=== PATIENT | male | born 1970 | race Caucasian/White ===

== ENCOUNTER 2021-01-07 11:22 | Emergency (ER) | payer OTHER ==
[~2021-01-07] VITALS: Ht 175.3 cm; Wt 92.0 kg
[2021-01-07 11:34] VITALS: BP 139/92
[2021-01-07] MEDS ORDERED: NAPR-56 PO (13:13)
[2021-01-07] MEDS ORDERED: ketorolac trometh inj. 60 MG/2 ML VIAL IM ONE (13:25)
== END 2021-01-07 13:49 | disposition home or self-care (01) ==
LOC: ER 11:23
DX: S46.912A Strain of unspecified muscle, fascia and tendon at shoulder and upper arm level, left arm, initial encounter (principal); R53.1 Weakness; Z79.899 Other long term (current) drug therapy; W22.8XXA Striking against or struck by other objects, initial encounter; Y93.89 Activity, other specified; Y92.89 Other specified places as the place of occurrence of the external cause; Y99.8 Other external cause status
CPT/HCPCS: 73030; 96372; 99283; J1885

== ENCOUNTER 2021-01-10 15:46 | Emergency (ER) | payer OTHER ==
[~2021-01-10] VITALS: Ht 175.3 cm; Wt 90.9 kg
[~2021-01-10 15:46] MED LIST: NAPR-56 PO
[2021-01-10 15:49] VITALS: BP 159/97
== END 2021-01-10 16:06 | disposition home or self-care (01) ==
LOC: ER 15:47
DX: Z00.00 Encounter for general adult medical examination without abnormal findings (principal); M25.512 Pain in left shoulder; Z98.890 Other specified postprocedural states; Z79.899 Other long term (current) drug therapy
CPT/HCPCS: 99281